=== PATIENT | male | born 1980 | race African-American/Black ===

== ENCOUNTER 2019-02-17 13:06 | Inpatient (IN) | payer BC, OTHER ==
[~2019-02-17] VITALS: Ht 182.9 cm; Wt 105.7 kg
[2019-02-17 14:27] LABS: BASOPHILS % 1.1 % (0.0-2.0); EOSINOPHILS % 0.6 % (0.0-5.0); HEMATOCRIT. 53.2 % (42.0-52.0); HEMOGLOBIN. 18.2 g/dL (14.0-18.0); LYMPHOCYTES % 20.8 % (20.0-50.0); MEAN CORPUSCULAR HEMOGLOBIN 32.2 pg (28.0-32.0); MEAN CORPUSCULAR VOLUME 94.3 fL (80.0-94.0); MEAN PLATELET VOLUME 8.4 fl (7.4-10.4); MONOCYTES % 7.7 % (2.0-8.0); NEUTROPHILS % 69.8 % (40.0-76.0); PLATELET 233 x1000/uL (130-400); RED BLOOD CELL COUNT 5.63 mill/uL (4.7-6.1); RED CELL DISTRIBUTION WIDTH 17.3 % (11.6-14.6)
[2019-02-17 14:31] LABS: CHLORIDE 105 mEq/L (98-107)
[2019-02-17] MEDS ORDERED: ASPIRIN 81MG TABLET PO ONE (15:45)
[2019-02-17] MEDS ORDERED: ACETAMINOPHEN 325MG TABLET PO PRN (16:00)
[2019-02-17] MEDS ORDERED: ONDANSETRON HCL 4MG/2ML INJ IV PRN (16:00)
[2019-02-17] MEDS ORDERED: LOSARTAN POTASSIUM 50 MG TABLET PO SCH (16:00)
[2019-02-17] MEDS ORDERED: HYDROCODONE/ACETAMINOPHEN 10/325MG TABLET PO PRN (16:15)
[2019-02-17 16:16] LABS: INR 2.7; PROTHROMBIN TIME 26.2 sec (9.6-11.0)
[2019-02-17 19:10] VITALS: BP 162/94
[2019-02-17] MEDS: METOPROLOL TARTRATE 50MG TABLET PO SCH (20:16)
[2019-02-17] MEDS: ATORVASTATIN CALCIUM 10MG TABLET PO SCH (20:16)
[2019-02-17 20:22] VITALS: BP 162/94
[2019-02-17] MEDS ORDERED: ATOR20TA65 PO (20:43)
[2019-02-17] MEDS ORDERED: LISI40TA4 PO (20:43)
[2019-02-17] MEDS ORDERED: ZOLP10TA2 PO ×2 (20:43→21:21)
[2019-02-17] MEDS ORDERED: HYDR25TA PO (20:43)
[2019-02-17] MEDS ORDERED: ASPI-1159 PO (20:43)
[2019-02-17] MEDS ORDERED: METO-539 PO (20:43)
[2019-02-17] MEDS ORDERED: HYDR-4009 MT (21:13)
[2019-02-17] MEDS ORDERED: ZOLP10TA2 MT (21:13)
[2019-02-17] MEDS ORDERED: ACET-2708 MT (21:13)
[2019-02-17] MEDS ORDERED: ATOR10TA69 MT (21:14)
[2019-02-17] MEDS ORDERED: WARF-67 MT (21:17)
[2019-02-17] MEDS ORDERED: WARF4TAB71 MT (21:17)
[2019-02-17] MEDS ORDERED: WARFARIN SODIUM 4MG TABLET PO NR (22:00)
[2019-02-17] MEDS: MORPHINE SULFATE 4 MG/ML CPJ (NOT FOR IM USE) IV PRN (22:42)
[2019-02-18 02:00] VITALS: BP 172/98
[2019-02-18] MEDS: MORPHINE SULFATE 4 MG/ML CPJ (NOT FOR IM USE) IV PRN ×3 (02:19→22:25)
[2019-02-18 06:00] LABS: INR 2.4; PROTHROMBIN TIME 23.8 sec (9.6-11.0)
[2019-02-18 06:02] LABS: EOSINOPHILS % 1.1 % (0.0-5.0); HEMATOCRIT. 51.7 % (42.0-52.0); HEMOGLOBIN. 17.5 g/dL (14.0-18.0); LYMPHOCYTES % 32.1 % (20.0-50.0); MEAN CORPUSCULAR HEMOGLOBIN 32.3 pg (28.0-32.0); MEAN CORPUSCULAR VOLUME 95.1 fL (80.0-94.0); MEAN PLATELET VOLUME 8.8 fl (7.4-10.4); MONOCYTES % 9.2 % (2.0-8.0); NEUTROPHILS % 56.6 % (40.0-76.0); PLATELET 192 x1000/uL (130-400); RED BLOOD CELL COUNT 5.44 mill/uL (4.7-6.1); RED CELL DISTRIBUTION WIDTH 17.2 % (11.6-14.6)
[2019-02-18 06:29] LABS: CHLORIDE 104 mEq/L (98-107)
[2019-02-18 06:50] LABS: HDL CHOLESTEROL 39 mg/dL (40-59); LDL CHOLESTEROL 41 mg/dL (5-100)
[2019-02-18 08:00] VITALS: BP 146/98
[2019-02-18] MEDS: METOPROLOL TARTRATE 50MG TABLET PO SCH ×3 (09:00→20:47)
[2019-02-18] MEDS: LISINOPRIL 40MG TABLET PO SCH (09:06)
[2019-02-18] MEDS: ASPIRIN 81MG TABLET PO SCH (09:06)
[2019-02-18] MEDS: HYDROCHLOROTHIAZIDE 25MG TABLET PO SCH (09:07)
[2019-02-18] MEDS ORDERED: POTASSIUM CHLORIDE 20MEQ TABLET SR PO NR (11:30)
[2019-02-18 12:00] VITALS: BP 167/94
[2019-02-18] MEDS: AMLODIPINE 5MG TABLET PO SCH ×2 (12:14→20:47)
[2019-02-18 15:58] LABS: *COCAINE SCREEN URINE NEGATIVE (NEGATIVE); METHADONE URINE SCREEN NEGATIVE (NEGATIVE); OPIATES URINE SCREEN NEGATIVE (NEGATIVE)
[2019-02-18 15:59] LABS: *AMPHETAMINES SCREEN URINE NEGATIVE (NEGATIVE); *BARBITURATES SCREEN URINE NEGATIVE (NEGATIVE); *BENZODIAZEPINES SCREEN URINE NEGATIVE (NEGATIVE); CANNABINOID URINE SCREEN NEGATIVE (NEGATIVE); PHENCYCLIDINE URINE SCREEN NEGATIVE (NEGATIVE)
[2019-02-18 16:00] VITALS: BP 128/85
[2019-02-18] MEDS ORDERED: WARFARIN SODIUM 4MG TABLET PO SCH (18:00)
[2019-02-18 20:00] VITALS: BP 134/89
[2019-02-18] MEDS: ATORVASTATIN CALCIUM 10MG TABLET PO SCH (20:47)
[2019-02-18] MEDS: HYDRALAZINE HCL 50MG TABLET PO SCH (20:48)
[2019-02-18] MEDS ORDERED: ZOLPIDEM TARTRATE 5MG TABLET PO PRN (21:00)
[2019-02-19] VITALS: BP 122/77
[2019-02-19 04:00] VITALS: BP_SYST 105; BP_SYST 106; BP_SYST 119; BP_DIAS 55; BP_DIAS 80; BP_DIAS 89
[2019-02-19 06:09] LABS: INR 2.6; PROTHROMBIN TIME 26.1 sec (9.6-11.0)
[2019-02-19 06:23] LABS: CHLORIDE 103 mEq/L (98-107)
[2019-02-19 06:30] LABS: BASOPHILS % 0.6 % (0.0-2.0); EOSINOPHILS % 1.1 % (0.0-5.0); HEMATOCRIT. 52.8 % (42.0-52.0); HEMOGLOBIN. 17.9 g/dL (14.0-18.0); LYMPHOCYTES % 29.6 % (20.0-50.0); MEAN CORPUSCULAR HEMOGLOBIN 32.2 pg (28.0-32.0); MEAN PLATELET VOLUME 8.4 fl (7.4-10.4); MONOCYTES % 8.6 % (2.0-8.0); NEUTROPHILS % 60.1 % (40.0-76.0); PLATELET 210 x1000/uL (130-400); RED BLOOD CELL COUNT 5.56 mill/uL (4.7-6.1); RED CELL DISTRIBUTION WIDTH 17.3 % (11.6-14.6)
[2019-02-19 08:00] VITALS: BP 105/70
[2019-02-19] MEDS: HYDROCHLOROTHIAZIDE 25MG TABLET PO SCH ×2 (08:59→09:19)
[2019-02-19] MEDS: HYDRALAZINE HCL 50MG TABLET PO SCH ×2 (08:59→09:19)
[2019-02-19] MEDS: AMLODIPINE 5MG TABLET PO SCH ×2 (09:00→09:19)
[2019-02-19] MEDS: LISINOPRIL 40MG TABLET PO SCH ×2 (09:00→09:19)
[2019-02-19] MEDS: METOPROLOL TARTRATE 50MG TABLET PO SCH ×2 (09:00→09:19)
[2019-02-19] MEDS: MORPHINE SULFATE 4 MG/ML CPJ (NOT FOR IM USE) IV PRN (09:01)
[2019-02-19] MEDS: ASPIRIN 81MG TABLET PO SCH (09:01)
[2019-02-19 09:17] VITALS: BP_SYST 124; BP_SYST 132; BP_SYST 136; BP_DIAS 84; BP_DIAS 86; BP_DIAS 91
[2019-02-19 11:48] VITALS: BP 143/82
[2019-02-19 12:00] VITALS: BP 143/82
== END 2019-02-19 12:15 | disposition home or self-care (01) | DRG 206 ==
LOC: ER 13:06 → ENRESERV 16:14 → 5WST 18:53
PROVIDERS: ADMIT Internal Medicine; ATTEND Internal Medicine
DX: M94.0 Chondrocostal junction syndrome [Tietze] (principal); D68.9 Coagulation defect, unspecified; I11.0 Hypertensive heart disease with heart failure; I50.9 Heart failure, unspecified; E78.5 Hyperlipidemia, unspecified; G47.33 Obstructive sleep apnea (adult) (pediatric); Z86.73 Personal history of transient ischemic attack (TIA), and cerebral infarction without residual deficits; Z95.0 Presence of cardiac pacemaker; Z95.2 Presence of prosthetic heart valve; F17.200 Nicotine dependence, unspecified, uncomplicated; G90.8 Other disorders of autonomic nervous system; Z90.49 Acquired absence of other specified parts of digestive tract; Z82.49 Family history of ischemic heart disease and other diseases of the circulatory system; Z79.01 Long term (current) use of anticoagulants; D75.1 Secondary polycythemia
CPT/HCPCS: 36415; 71045; 80048; 80061; 80305; 83735; 83880; 84443; 84484; 93005; 93306; 96374; 96375; 99285; J2270